=== PATIENT | male | born 1980 | race Caucasian/White ===

== ENCOUNTER 2023-03-11 14:57 | Emergency (ER) | payer SELFPAY ==
[~2023-03-11] VITALS: Ht 165.1 cm; Wt 77.1 kg
[2023-03-11 15:02] VITALS: BP 126/86; PULSE 71; RESP 18; TEMP 98.5; O2SAT 99
[2023-03-11] MEDS ORDERED: IBUPROFEN 600 MG TAB PO ONE (15:20)
[2023-03-11] MEDS ORDERED: LIDOCAINE MPF 1% 10 MG/ML VIAL INJ ONE (15:20)
[2023-03-11] MEDS ORDERED: BACITRACIN OINT 500 UNITS/GM PKT TP ONE (15:20)
[2023-03-11] MEDS ORDERED: BACI-418 TP (16:39)
[2023-03-11] MEDS ORDERED: IBUP-2213 PO (16:39)
== END 2023-03-11 16:53 | disposition home or self-care (01) ==
LOC: MED 14:57
DX: S61.412A Laceration without foreign body of left hand, initial encounter (principal); R93.89 Abnormal findings on diagnostic imaging of other specified body structures; Z79.1 Long term (current) use of non-steroidal anti-inflammatories (NSAID); Z79.2 Long term (current) use of antibiotics; X58.XXXA Exposure to other specified factors, initial encounter; Y93.89 Activity, other specified; Y92.89 Other specified places as the place of occurrence of the external cause; Y99.8 Other external cause status
CPT/HCPCS: 12002; 73140; 90471; 90715; 99283; J2001

== ENCOUNTER 2023-03-14 15:50 | Emergency (ER) | payer MEDICAID ==
[~2023-03-14] VITALS: Ht 167.6 cm; Wt 59.0 kg
[~2023-03-14 15:50] MED LIST: BACI-418 TP; IBUP-2213 PO
[2023-03-14 16:33] VITALS: BP 111/67; PULSE 62; RESP 18; TEMP 97; O2SAT 98
== END 2023-03-14 18:00 | disposition home or self-care (01) ==
LOC: MED 15:50
DX: S61.215D Laceration without foreign body of left ring finger without damage to nail, subsequent encounter (principal); Z48.00 Encounter for change or removal of nonsurgical wound dressing; Z79.2 Long term (current) use of antibiotics; Z79.1 Long term (current) use of non-steroidal anti-inflammatories (NSAID); X58.XXXD Exposure to other specified factors, subsequent encounter
CPT/HCPCS: 99281

== ENCOUNTER 2023-03-18 09:34 | Emergency (ER) | payer MEDICAID ==
[~2023-03-18] VITALS: Ht 167.6 cm; Wt 72.6 kg
[2023-03-18 10:20] VITALS: BP 103/73; PULSE 58; RESP 18; TEMP 97; O2SAT 98
== END 2023-03-18 12:15 | disposition home or self-care (01) ==
LOC: MED 09:34
DX: S61.215D Laceration without foreign body of left ring finger without damage to nail, subsequent encounter (principal); Z48.00 Encounter for change or removal of nonsurgical wound dressing; X58.XXXD Exposure to other specified factors, subsequent encounter
CPT/HCPCS: 99281

== ENCOUNTER 2023-03-21 08:46 | Emergency (ER) | payer MEDICAID ==
[~2023-03-21] VITALS: Ht 165.1 cm; Wt 59.0 kg
[2023-03-21 09:25] VITALS: BP 117/65; PULSE 80; RESP 18; TEMP 98; O2SAT 98
[2023-03-21 11:57] VITALS: BP 117/65; PULSE 80; RESP 18; TEMP 98; O2SAT 98
== END 2023-03-21 11:56 | disposition home or self-care (01) ==
LOC: MED 08:46
DX: S61.215D Laceration without foreign body of left ring finger without damage to nail, subsequent encounter (principal); Z48.02 Encounter for removal of sutures; X58.XXXD Exposure to other specified factors, subsequent encounter
CPT/HCPCS: 99281